=== PATIENT | male | born 1950 | race Caucasian/White ===

== ENCOUNTER → 2017-01-20 | Outpatient (CLI) | payer OTHER ==
[~2017-01-20] MED LIST: ATROVENT 00.5 MG/2.5 IH; CHILDREN'S160 MG/22 GT; CHILDREN'S160 MG/23 PO; FENTANYL1 EAC5 TD; IPRATROPIU0.2 MG/1 M INTRATRACH; LORAZEPAM0.5 MG GT; MAGNESIUM250 MG GT; OXAYDO5 MG GT; PROVENTIL,2.5 MG/3 M INTRATRACH; TRAZODONE HCL50 MG GT; TRAZODONE HCL50 MG PO; ZUPLENZ8 MG GT
== END ==
LOC: RAD 08:03
DX: C09.9 Malignant neoplasm of tonsil, unspecified (principal)
CPT/HCPCS: 70491; 71260